=== PATIENT | female | born 1980 | race Caucasian/White ===

== ENCOUNTER 2016-11-02 00:52 | Emergency (ER) | payer SELFPAY ==
[2016-11-02] MEDS ORDERED: ZOFRAN ODT PO ONE (01:38)
[2016-11-02 02:10] LABS: Basophils % (Auto) 0.9 % (0.0-1.8); Eosinophils % (Auto) 0.4 % (0.0-4.3); Hematocrit 39.9 % (30.3-42.9); Hemoglobin 13.3 gm/dl (10.1-14.3); Mean Corpuscular HGB Conc 33 % (30-34); Mean Corpuscular Hemoglobin 29 pg (28-32); Mean Corpuscular Volume 87 fl (79-97); Platelet Count 203 K/mm3 (140-440); Red Blood Count 4.59 M/mm3 (3.65-5.03); Red Cell Distribution Width 13.7 % (13.2-15.2); White Blood Count 10.7 K/mm3 (4.5-11.0)
[2016-11-02 02:31] LABS: Alanine Aminotransferase 15 units/L (7-56); Albumin/Globulin Ratio 0.9 %; Alkaline Phosphatase 65 units/L (35-129); Anion Gap 16 mmol/L; Blood Urea Nitrogen 15 mg/dL (7-17); Calcium 9.2 mg/dL (8.4-10.2); Carbon Dioxide 26 mmol/L (22-30); Chloride 98.1 mmol/L (98-107); Glucose 140 mg/dL (65-100); Lipase 23 units/L (13-60); Potassium 4.2 mmol/L (3.6-5.0); Sodium 136 mmol/L (137-145); Total Protein 8.3 g/dL (6.3-8.2)
--- NOTE | 2016-11-02 03:30 | Cat Scan Report ---
FINAL REPORT EXAM: CT HEAD/BRAIN WO CON HISTORY: migraine w/vomiting/yic-ofduaim-wjcsn ever COMPARISON: None available. TECHNIQUE: Axial images obtained skull base through vertex. FINDINGS: No acute intracranial hemorrhage, midline shift or pathologic extra axial fluid collection. Ventricles and cisterns are normal in size and configuration for the patient's age. Osborne-white differentiation preserved. Calvarium grossly intact. Visualized para-nasal sinuses and mastoid air cells are clear. Visualized orbits are grossly unremarkable. 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 IMPRESSION: No grossly acute intracranial abnormality.
[2016-11-02] MEDS ORDERED: TYLENOL PO ONE (05:23)
--- NOTE | 2016-11-02 08:42 | Emergency Department Report ---
ED Headache HPI - General Chief Complaint: Headache Stated Complaint: EMESIS/HEAD PAIN Time Seen by Provider: 11/02/16 08:32 - History of Present Illness Initial Comments: Patient admits that she has similar headaches before. Her last emergency department visit was 5 years ago under very similar circumstances. She states she's had a headache for the last few days which is bifrontal in nature of gradual onset. 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 This headache is typical for her. She states that it is one of her worst headaches although she does have frequent ones. She cannot explain to me how this headache is different than the headache that caused her last emergency department visit 5 years ago. She denies any focal neurological symptoms, fever or chills. She denies any recent vomiting although she has been nauseated. She denies neck soreness or stiffness. She states that she's been to a neurologist before for these headaches that have been previously termed migraines. Timing/Duration: 24 hours (plus) Quality: moderate, severe Head Injury Location: frontal Recent Head Trauma: frequent headaches, other (migraine headache) Modifying Factors: improves with: exposure to light Associated Symptoms: nausea/vomiting. denies: denies symptoms, confusion, fatigue, facial pain, fever/chills, flushing, loss of consciousness, nasal congestion, nasal drainage, numbness in legs/feet, rash, seizures, sinus infection, stiff neck, vision changes, weakness, other Allergies/Adverse Reactions: Allergies No Known Allergies Allergy (Unverified 11/02/16 01:36) Home Medications: Ambulatory Orders Butalb/Acetaminophen/Caffeine [Fioricet 50-300-40 mg CAP] 1 cap PO Q6HR PRN #10 cap 11/02/16 Ondansetron [Zofran Odt] 4 mg PO Q6H PRN #7 tab.rapdis 11/02/16 ED Review of Systems ROS: Stated complaint: EMESIS/HEAD PAIN Other details as noted in HPI Constitutional: denies: chills, fever Eyes: denies: eye pain, eye discharge, vision change ENT: denies: ear pain, throat pain Respiratory: denies: cough, shortness of breath, wheezing Cardiovascular: denies: chest pain, palpitations Endocrine: no symptoms reported Gastrointestinal: denies: abdominal pain, nausea, diarrhea Genitourinary: denies: urgency, dysuria, discharge Musculoskeletal: denies: back pain, joint swelling, arthralgia Skin: denies: rash, lesions Neurological: headache. denies: weakness, paresthesias Psychiatric: denies: anxiety, depression Hematological/Lymphatic: denies: easy bleeding, easy bruising ED Past Medical Hx - Past Medical History Previous Medical History?: No - Surgical History Past Surgical History?: Yes Additional Surgical History: x4. left shoulder - Family History Family history: other (negative for intracranial aneurysm) - Social History Smoking Status: Never Smoker Substance Use Type: None - Medications Home Medications: Home Medications Medication Instructions Recorded Confirmed Last Taken Type Butalb/Acetaminophen/Caffeine 1 cap PO Q6HR PRN #10 cap 11/02/16 Unknown Rx [Fioricet 50-300-40 mg CAP] Ondansetron [Zofran Odt] 4 mg PO Q6H PRN #7 tab.rapdis 11/02/16 Unknown Rx ED Physical Exam - General Limitations: No Limitations General appearance: alert, in no apparent distress - Head Head exam: Present: atraumatic, normocephalic, normal inspection - Eye Eye exam: Present: normal appearance, PERRL, EOMI. Absent: scleral icterus - ENT ENT exam: Present: normal exam, mucous membranes moist - Neck Neck exam: Present: normal inspection. Absent: tenderness, meningismus - Respiratory Respiratory exam: Present: normal lung sounds bilaterally. Absent: respiratory distress - Cardiovascular Cardiovascular Exam: Present: regular rate, normal rhythm. Absent: systolic murmur, diastolic murmur, rubs, gallop - GI/Abdominal GI/Abdominal exam: Present: soft, normal bowel sounds. Absent: distended, tenderness, guarding, rebound, rigid - Extremities Exam Extremities exam: Present: normal inspection - Back Exam Back exam: Present: normal inspection - Neurological Exam Neurological exam: Present: alert, oriented X3, CN II-XII intact, normal gait, other (cerebellar testing was normal). Absent: motor sensory deficit - Psychiatric Psychiatric exam: Present: normal affect, normal mood - Skin Skin exam: Present: warm, dry, intact, normal color. Absent: rash ED Course Vital Signs 11/02/16 11/02/16 01:24 08:06 Temperature 98.2 F 98.1 F Pulse Rate 81 61 Respiratory 16 16 Rate Blood Pressure 140/98 101/68 O2 Sat by Pulse 97 97 Oximetry - Reevaluation(s) Reevaluation #1: On reexamination, the patient's headache is relieved. She is neurologically intact. I do not think she requires any further workup at this time. 11/02/16 11:40 ED Medical Decision Making - Lab Data Result diagrams: 11/02/16 01:58 11/02/16 01:58 Laboratory Results - last 24 hr 11/02/16 11/02/16 01:58 01:58 WBC 10.7 RBC 4.59 Hgb 13.3 Hct 39.9 MCV 87 MCH 29 MCHC 33 RDW 13.7 Plt Count 203 Lymph % (Auto) 17.6 Whitley % (Auto) 4.7 Eos % (Auto) 0.4 Baso % (Auto) 0.9 Lymph # 1.9 Whitley # 0.5 Eos # 0.0 Baso # 0.1 Seg Neutrophils % 76.4 H Seg Neutrophils # 8.2 H Sodium 136 L Potassium 4.2 Chloride 98.1 Carbon Dioxide 26 Anion Gap 16 BUN 15 Creatinine 0.5 L Estimated GFR > 60 BUN/Creatinine Ratio 30.00 Glucose 140 H Calcium 9.2 Total Bilirubin 0.40 AST 19 ALT 15 Alkaline Phosphatase 65 Total Protein 8.3 H Albumin 4.0 Albumin/Globulin Ratio 0.9 Lipase 23 - Radiology Data Radiology results: report reviewed (CT head shows nothing acute) Critical care attestation.: If time is entered above; I have spent that time in minutes in the direct care of this critically ill patient, excluding procedure time. ED Disposition Clinical Impression: Migraine headache Qualifiers: Migraine type: unspecified Status migrainosus presence: without status migrainosus Intractability: not intractable Qualified Code(s): G43.909 - Migraine, unspecified, not intractable, without status migrainosus Disposition: DC-01 TO HOME OR SELFCARE Is pt being admited?: No Does the pt Need Aspirin: No Condition: Stable Instructions: Acute Headache (ED), Migraine Headache (ED) Additional Instructions: Follow-up with neurologist. See referral. Follow-up with primary care physician. Rx as needed. Return any acute change or worsening symptoms. Prescriptions: Butalb/Acetaminophen/Caffeine [Fioricet 50-300-40 mg CAP] 1 cap PO Q6HR PRN #10 cap PRN Reason: Headache Ondansetron [Zofran Odt] 4 mg PO Q6H PRN #7 tab.rapdis PRN Reason: Nausea Referrals: PRIMARY CARE, [Primary Care Provider] - 3-5 Days FAREED ORELLANA MD [Staff Physician] - 3-5 Days [facility] [Provider Group] - 2-3 Days Time of Disposition: 11:45
[2016-11-02] MEDS ORDERED: DILAUDID IV ONE (09:08)
[2016-11-02] MEDS ORDERED: BENADRYL IV ONE (09:08)
[2016-11-02] MEDS ORDERED: NACL 0.9% 1000 ML 1,000 ML IV ONE (09:09)
[2016-11-02] MEDS ORDERED: REGLAN IV ONE (09:09)
[2016-11-02 14:02] VITALS: BP 111/70
== END 2016-11-02 12:35 | disposition home or self-care (01) ==
LOC: ED 00:52
DX: G43.909 Migraine, unspecified, not intractable, without status migrainosus (principal)
CPT/HCPCS: 36415; 70450; 80053; 83690; 85025; 96361; 96374; 96375; 99284; J1170; J1200; J2765; J7030; Q0162

== ENCOUNTER 2021-03-05 12:29 | Emergency (ER) | payer SELFPAY ==
[2021-03-05 13:15] VITALS: BP 138/96
--- NOTE | 2021-03-05 13:57 | Emergency Department Report ---
ED Female HPI - General Chief complaint: Vaginal Bleeding Stated complaint: CLOTS Time Seen by Provider: 03/05/21 13:38 Source: patient Mode of arrival: Ambulatory Limitations: No Limitations - History of Present Illness Initial comments: 40-year-old female presents to the emergency room for a 3-day history of vaginal bleeding. Patient complains of dizziness and headache. Patient reports she went to [facility] was seen by Dr. Isrrael Triplett and when he tried to perform a female exam she had copious amount of bleeding. He therefore referred patient to the emergency room. Patient is 5 para 5 with 4 C- sections. She currently takes no meds has no known drug allergies and no past medical history. MD Complaint: vaginal bleeding Onset/Timin -: days(s) Severity scale (0 -10): 8 Improves with: none Worsens with: movement Are you Now?: No Associated Symptoms: vaginal bleeding. denies: nausea/vomiting, fever/chills - Related Data : 5 Para: 5 Previous Rx's Medication Instructions Recorded Last Taken Type Butalb/Acetaminophen/Caffeine 1 cap PO Q6HR PRN #10 cap 11/02/16 Unknown Rx [Fioricet 50-300-40 mg CAP] Ondansetron [Zofran Odt] 4 mg PO Q6H PRN #7 tab.rapdis 11/02/16 Unknown Rx medroxyPROGESTERone ACETATE 10 mg PO QDAY 10 Days #10 tablet 03/05/21 Unknown Rx [Provera] Allergies Allergy/AdvReac Type Severity Reaction Status Date / Time No Known Allergies Allergy Unverified 11/02/16 01:36 ED Review of Systems ROS: Stated complaint: CLOTS Other details as noted in HPI Comment: All other systems reviewed and negative ED Past Medical Hx - Surgical History Additional Surgical History: x4. left shoulder - Social History Smoking Status: Never Smoker Substance Use Type: None - Medications Home Medications: Home Medications Medication Instructions Recorded Confirmed Last Taken Type Butalb/Acetaminophen/Caffeine 1 cap PO Q6HR PRN #10 cap 11/02/16 Unknown Rx [Fioricet 50-300-40 mg CAP] Ondansetron [Zofran Odt] 4 mg PO Q6H PRN #7 tab.rapdis 11/02/16 Unknown Rx medroxyPROGESTERone ACETATE 10 mg PO QDAY 10 Days #10 tablet 03/05/21 Unknown Rx [Provera] ED Physical Exam - General Limitations: No Limitations General appearance: alert, in no apparent distress - Head Head exam: Present: atraumatic, normocephalic - Eye Eye exam: Present: normal appearance - ENT ENT exam: Present: mucous membranes moist - Neck Neck exam: Present: normal inspection - Respiratory Respiratory exam: Present: normal lung sounds bilaterally. Absent: respiratory distress - Cardiovascular Cardiovascular Exam: Present: regular rate, normal rhythm. Absent: systolic murmur, diastolic murmur, rubs, gallop - GI/Abdominal GI/Abdominal exam: Present: soft, normal bowel sounds - Extremities Exam Extremities exam: Present: normal inspection - Back Exam Back exam: Present: normal inspection - Neurological Exam Neurological exam: Present: alert, oriented X3 - Psychiatric Psychiatric exam: Present: normal affect, normal mood - Skin Skin exam: Present: warm, dry, intact, normal color. Absent: rash ED Course Vital Signs 03/05/21 13:11 Temperature 98.3 F Pulse Rate 75 Respiratory 16 Rate Blood Pressure 138/96 [Left] O2 Sat by Pulse 97 Oximetry ED Medical Decision Making - Lab Data Result diagrams: 03/05/21 14:14 03/05/21 14:14 Critical care attestation.: If time is entered above; I have spent that time in minutes in the direct care of this critically ill patient, excluding procedure time. ED Disposition Clinical Impression: Dysmenorrhea Disposition: 01 HOME / SELF CARE / HOMELESS Is pt being admited?: No Does the pt Need Aspirin: No Condition: Stable Additional Instructions: Labs are stable shows no signs of anemia. Negative test. I like for you to take the Provera 10 mg for 10 days and follow-up with your primary care provider or [facility]. Return to the ER if you have any signs of dizziness shortness of breath chest pain or worsening bleeding. Prescriptions: medroxyPROGESTERone ACETATE [Provera] 10 mg PO QDAY 10 Days #10 tablet Referrals: PRIMARY CARE, [Primary Care Provider] - 3-5 Days [facility] [Provider Group] - 3-5 Days [facility] [Provider Group] - 3-5 Days [facility] [Provider Group] - 3-5 Days Forms: Work/School Release Form(ED) Time of Disposition: 17:04
[2021-03-05 14:43] LABS: Basophils % (Auto) 0.6 % (0.0-1.8); Eosinophils # (Auto) 0.1 K/mm3 (0.0-0.4); Eosinophils % (Auto) 1.4 % (0.0-4.3); Hematocrit 40.6 % (30.3-42.9); Lymphocytes # (Auto) 2.4 K/mm3 (1.2-5.4); Lymphocytes % (Auto) 34.3 % (13.4-35.0); Mean Corpuscular HGB Conc 32 % (30-34); Mean Corpuscular Volume 90 fl (79-97); Monocytes # (Auto) 0.4 K/mm3 (0.0-0.8); Monocytes % (Auto) 5.6 % (0.0-7.3); Platelet Count 203 K/mm3 (140-440); Red Blood Count 4.51 M/mm3 (3.65-5.03); Red Cell Distribution Width 13.3 % (13.2-15.2)
[2021-03-05 14:51] LABS: Alanine Aminotransferase 24 units/L (7-56); Albumin 4.3 g/dL (3.9-5); Blood Urea Nitrogen 9 mg/dL (7-17); Calcium 9.3 mg/dL (8.4-10.2); Hemolysis Index 8
[2021-03-05 14:56] LABS: BUN/Creatinine Ratio 15
[2021-03-05] MEDS ORDERED: ACETAMINOPHEN 500 MG TAB PO ONE (16:01)
[2021-03-05 16:21] LABS: Bilirubin,Urine NEG (Negative); Blood,Urine LG (Negative); Color,Urine Red (Yellow); Urobilinogen,Urine < 2.0 mg/dL (<2.0)
[2021-03-05 16:22] LABS: RBC,Urine > 182.0 /HPF (0.0-6.0); WBC,Urine < 1.0 /HPF (0.0-6.0)
== END 2021-03-05 17:24 | disposition home or self-care (01) ==
LOC: ED 12:29
DX: N94.6 Dysmenorrhea, unspecified (principal); Z98.890 Other specified postprocedural states; Z79.899 Other long term (current) drug therapy
CPT/HCPCS: 36415; 80053; 81001; 84702; 85025; 86850; 86900; 86901; 99283